=== PATIENT | female | born 1950 | race Two or more races ===

== ENCOUNTER 2020-05-14 06:41 | Day surgery (SDC) | payer OTHER | END 2020-05-14 10:45 | disposition home or self-care (01) | LOC: AMB-ENDOS 06:41 | PROVIDERS: ATTEND Surgery | DX: D12.5 Benign neoplasm of sigmoid colon (principal); Z20.828 Contact with and (suspected) exposure to other viral communicable diseases ==

== ENCOUNTER 2022-02-04 09:24 | Emergency (ER) | payer OTHER | END 2022-02-04 15:06 | disposition home or self-care (01) | LOC: ER 09:24 | DX: M79.604 Pain in right leg (principal); I87.2 Venous insufficiency (chronic) (peripheral); I83.91 Asymptomatic varicose veins of right lower extremity ==